=== PATIENT | male | born 2005 | race Caucasian/White ===

== ENCOUNTER 2025-01-04 19:26 | Emergency (ER) | payer OTHER ==
[2025-01-04 19:34] VITALS: BP 119/80; PULSE 87; RESP 16; TEMP 98.1; BMI 20.7
[2025-01-04] MEDS ORDERED: MAG HYDROX/AL HYDROX/SIMETH 30 ML UNIT-DOSE CUP ONE (20:12)
[2025-01-04] MEDS ORDERED: FAMOTIDINE 20 MG TABLET ONE (20:13)
[2025-01-04] MEDS: FAMOTIDINE 20 MG TABLET PO ONE (20:28)
[2025-01-04] MEDS: MAG HYDROX/AL HYDROX/SIMETH 30 ML UNIT-DOSE CUP PO ONE (20:28)
[2025-01-04 20:32] LABS: ABSOLUTE IMMATURE GRANULOCYTES 0.04 x10^3/uL (0.0-0.031); BASOPHILS # 0.06 x10^3/uL (0.01-0.08); EOSINOPHILS # 0.23 x10^3/uL (0.04-0.54); HEMATOCRIT 41.4 % (40.1-51.0); HEMOGLOBIN 12.7 g/dL (13.7-17.5); MCHC 30.7 g/dl (32.3-36.5); MEAN CELL VOLUME 58.8 fl (79.0-92.2); MONOCYTE # 0.88 x10^3/uL (0.30-0.82); MONOCYTE % 7.6 % (5.3-12.2); PLATELET COUNT 285 x10^3/uL (163-337); RDW 18.8 % (12.0-15.6)
[2025-01-04 20:54] LABS: POTASSIUM 4.7 mmol/L (3.5-5.1)
[2025-01-04 20:57] LABS: CALCIUM 10.2 mg/dL (8.5-10.1)
[2025-01-04 20:58] LABS: ALBUMIN 4.4 g/dl (3.4-5.0); BLOOD UREA NITROGEN 17.6 mg/dL (7-18)
[2025-01-04 21:01] LABS: CREATININE 0.9 mg/dL (0.55-1.3)
[2025-01-04 21:02] LABS: BILIRUBIN,TOTAL 0.9 mg/dL (0.2-1); TOT PROT 7.8 g/dl (6.4-8.2)
== END 2025-01-04 21:47 | disposition home or self-care (01) ==
LOC: JERFT 19:26
DX: R07.2 Precordial pain (principal); R07.0 Pain in throat; M54.6 Pain in thoracic spine
CPT/HCPCS: 36415; 71046-TC-FY; 80053; 82150; 83690; 85025; 93005; 93010; 99285-25